=== PATIENT | male | born 1960 | race African-American/Black ===

== ENCOUNTER 2019-12-30 13:35 | Inpatient (IN) | payer MEDICAID, OTHER ==
[~2019-12-30] VITALS: Ht 193 cm; Wt 81.6 kg
[2019-12-30] MEDS ORDERED: WARF2TAB57 PO (13:43)
[2019-12-30] MEDS ORDERED: SODIUM CHLORIDE 0.9% 1,000 ML IV ONE (13:49)
[2019-12-30] MEDS ORDERED: MAGNESIUM 2 G PREMIX 50 ML IV STA (14:07)
[2019-12-30] MEDS ORDERED: ALBUTEROL (0.083%) 2.5MG/3ML NEB HHN STA (14:07)
[2019-12-30] MEDS ORDERED: IPRATROPIUM BROMIDE (0.02%) 0.5MG/2.5ML NEB HHN STA (14:07)
[2019-12-30] MEDS ORDERED: METHYLPREDNISOLONE SOD SUCC 125 MG/2 ML VIAL IV STA (14:07)
[2019-12-30 14:53] LABS: BASOPHILS % 0.8 % (0.0-2.0); EOSINOPHILS % 0.4 % (0.0-5.0); HEMOGLOBIN. 15.3 g/dL (14.0-18.0); LYMPHOCYTES % 11.9 % (20.0-50.0); MEAN CORPUSCULAR HEMOGLOBIN 31.5 pg (28.0-32.0); MEAN CORPUSCULAR VOLUME 94.3 fL (80.0-94.0); MEAN PLATELET VOLUME 8.5 fl (7.4-10.4); MONOCYTES % 11.1 % (2.0-8.0); NEUTROPHILS % 75.8 % (40.0-76.0); PLATELET 166 x1000/uL (130-400); RED BLOOD CELL COUNT 4.88 mill/uL (4.7-6.1); RED CELL DISTRIBUTION WIDTH 15.5 % (11.6-14.6)
[2019-12-30 15:03] LABS: CHLORIDE 103 mEq/L (98-107)
[2019-12-30 15:04] LABS: INR 1.3; PARTIAL THROMBOPLASTIN TIME 26.4 sec (23.4-31.0); PROTHROMBIN TIME 13.1 sec (9.6-11.0)
[2019-12-30 15:07] LABS: ETHANOL BLOOD 40 mg/dL
[2019-12-30] MEDS ORDERED: HEPARIN 25,000 UNITS PREMIX 500 ML IV STA (17:24)
[2019-12-30] MEDS ORDERED: HEPARIN 5000 UNITS/ML VIAL IV ONE (17:30)
[2019-12-30] MEDS ORDERED: HEPARIN 80 UNITS/KG BOLUS IV NR (17:33)
[2019-12-30] MEDS ORDERED: HEPARIN BOLUS PRN aPTT <36 IV (17:45)
[2019-12-30 18:27] LABS: CHLORIDE 105 mEq/L (98-107)
[2019-12-30] MEDS ORDERED: DIPHENHYDRAMINE 50MG/ML VIAL IV PRN (18:30)
[2019-12-30] MEDS ORDERED: ONDANSETRON HCL 4MG/2ML INJ IV PRN (18:30)
[2019-12-30] MEDS ORDERED: IPRATROPIUM/ALBUTEROL 0.5-3(2.5)MG/3ML NEB HHN PRN (18:30)
[2019-12-30] MEDS ORDERED: CLONIDINE 0.1MG TABLET PO PRN (18:30)
[2019-12-30] MEDS ORDERED: MORPHINE SULFATE 2 MG/ML CPJ (NOT FOR IM USE) IV PRN (18:30)
[2019-12-30] MEDS ORDERED: ACETAMINOPHEN 325MG TABLET PO PRN (18:30)
[2019-12-30] MEDS ORDERED: IOHEXOL-350 100 ML BOTTLE ONE (23:18)
[2019-12-30 23:39] LABS: CLARITY URINE CLEAR (CLEAR); COLOR URINE YELLOW (YELLOW); KETONES URINE TRACE (NEGATIVE); LEUKOCYTE ESTERASE URINE NEGATIVE (NEGATIVE); NITRITE URINE NEGATIVE (NEGATIVE); OCCULT BLOOD URINE NEGATIVE (NEGATIVE); PROTEIN URINE 2+ (NEGATIVE); SPECIFIC GRAVITY URINE 1.049 (1.005-1.030)
[2019-12-31] VITALS (22 sets, daily range): BP systolic 89–126; BP diastolic 53–78
[2019-12-31 00:08] LABS: *AMPHETAMINES SCREEN URINE NEGATIVE (NEGATIVE); *BARBITURATES SCREEN URINE NEGATIVE (NEGATIVE); *BENZODIAZEPINES SCREEN URINE NEGATIVE (NEGATIVE); *COCAINE SCREEN URINE PRESUMTIVE POSITIVE (NEGATIVE)
[2019-12-31 00:09] LABS: METHADONE URINE SCREEN NEGATIVE (NEGATIVE); OPIATES URINE SCREEN NEGATIVE (NEGATIVE); PHENCYCLIDINE URINE SCREEN NEGATIVE (NEGATIVE)
[2019-12-31 00:10] LABS: CANNABINOID URINE SCREEN PRESUMTIVE POSITIVE (NEGATIVE)
[2019-12-31 06:02] LABS: HEMATOCRIT. 42.8 % (42.0-52.0); HEMOGLOBIN. 14.3 g/dL (14.0-18.0); MEAN CORPUSCULAR HEMOGLOBIN 31.3 pg (28.0-32.0); MEAN CORPUSCULAR VOLUME 93.9 fL (80.0-94.0); MEAN PLATELET VOLUME 8.5 fl (7.4-10.4); PLATELET 151 x1000/uL (130-400); RED BLOOD CELL COUNT 4.56 mill/uL (4.7-6.1); RED CELL DISTRIBUTION WIDTH 15.1 % (11.6-14.6)
[2019-12-31 06:09] LABS: LDL CHOLESTEROL 81 mg/dL (5-100)
[2019-12-31 06:10] LABS: HDL CHOLESTEROL 38 mg/dL (40-59)
[2019-12-31 08:29] LABS: BG BASE EXCESS -3.4 mmol/L (-2.0-2.0); BG CARBOXYHEMOGLOBIN 1.2 % (0.5-1.5); BG DEOXYHEMOGLOBIN 15.2 % (0.0-5.0); BG FRACTION INSPIRED OXYGEN 44; BG METHEMOGLOBIN 0.1 % (0.0-1.5); BG OXYGEN SATURATION 84.6 % (92.0-98.5); BG OXYHEMOGLOBIN 83.5 % (94.0-97.0); BG PCO2 41.1 mmHg (35.0-45.0); BG PH 7.347 (7.350-7.450); BG PO2 52.3 mmHg (75.0-100.0); BG SAMPLE SITE RIGHT RADIAL; BG TOTAL HEMOGLOBIN 15.3 g/dL (12.0-18.0); BG VENT MODE NASAL CANNULA
[2019-12-31] MEDS ORDERED: HEPARIN 25,000 UNITS PREMIX 500 ML IV PRN (08:45)
[2019-12-31] MEDS ORDERED: MULTIVITAMINS,THER W-MINERALS TABLET PO SCH (09:45)
[2019-12-31] MEDS ORDERED: FOLIC ACID 1MG TABLET PO SCH (09:45)
[2019-12-31] MEDS ORDERED: FUROSEMIDE 40MG/4ML VIAL IVP SCH (10:30)
[2019-12-31] MEDS: THIAMINE HCL 100MG TABLET PO SCH (10:40)
[2019-12-31] MEDS: HEPARIN 25,000 UNITS PREMIX 500 ML IV SCH (10:43)
[2019-12-31 11:46] LABS: PLATELET ESTIMATE NORMAL
[2019-12-31 12:25] LABS: CHLORIDE 104 mEq/L (98-107)
[2019-12-31 13:45] LABS: T4 FREE 0.98 ng/dL (0.76-1.46)
[2019-12-31] MEDS: CHLORDIAZEPOXIDE 25MG CAPSULE PO SCH ×2 (14:02→17:09)
[2019-12-31] MEDS: FOLIC ACID 1 MG, THIAMINE HCL 100 MG, MVI, ADULT NO.1 10 ML in SODIUM CHLORIDE 0.9% 1,0... IV SCH ×4 (14:02)
[2019-12-31] MEDS: HEPARIN BOLUS PRN aPTT 37-44 IV (18:14)
[2019-12-31] MEDS: FAMOTIDINE 20MG TABLET PO SCH (20:00)
[2020-01-01] VITALS (24 sets, daily range): BP systolic 95–129; BP diastolic 56–88
[2020-01-01] MEDS: HEPARIN 25,000 UNITS PREMIX 500 ML IV SCH ×3 (05:24→21:15)
[2020-01-01 05:52] LABS: BASOPHILS % 0.8 % (0.0-2.0); EOSINOPHILS % 0.8 % (0.0-5.0); HEMATOCRIT. 40.5 % (42.0-52.0); HEMOGLOBIN. 13.3 g/dL (14.0-18.0); LYMPHOCYTES % 17.4 % (20.0-50.0); MEAN CORPUSCULAR HEMOGLOBIN 31.1 pg (28.0-32.0); MEAN CORPUSCULAR VOLUME 94.6 fL (80.0-94.0); MEAN PLATELET VOLUME 9.1 fl (7.4-10.4); MONOCYTES % 12.3 % (2.0-8.0); NEUTROPHILS % 68.7 % (40.0-76.0); PLATELET 147 x1000/uL (130-400); RED BLOOD CELL COUNT 4.29 mill/uL (4.7-6.1); RED CELL DISTRIBUTION WIDTH 15.1 % (11.6-14.6)
[2020-01-01 06:07] LABS: CHLORIDE 108 mEq/L (98-107)
[2020-01-01 06:12] LABS: PHOSPHORUS 2.6 mg/dL (2.5-4.9)
[2020-01-01] MEDS: FAMOTIDINE 20MG TABLET PO SCH ×2 (08:43→21:47)
[2020-01-01] MEDS: CHLORDIAZEPOXIDE 25MG CAPSULE PO SCH ×3 (08:43→18:25)
[2020-01-01] MEDS: THIAMINE HCL 100MG TABLET PO SCH (08:43)
[2020-01-01] MEDS: FOLIC ACID 1 MG, THIAMINE HCL 100 MG, MVI, ADULT NO.1 10 ML in SODIUM CHLORIDE 0.9% 1,0... IV SCH ×4 (13:38)
[2020-01-01] MEDS: HEPARIN BOLUS PRN aPTT 37-44 IV (18:26)
[2020-01-01] MEDS: FUROSEMIDE 40MG/4ML VIAL IVP SCH (18:46)
[2020-01-02] VITALS (26 sets, daily range): BP systolic 82–124; BP diastolic 48–91
[2020-01-02 05:45] LABS: BASOPHILS % 0.9 % (0.0-2.0); HEMATOCRIT. 43.1 % (42.0-52.0); HEMOGLOBIN. 14.2 g/dL (14.0-18.0); LYMPHOCYTES % 17.8 % (20.0-50.0); MEAN CORPUSCULAR HEMOGLOBIN 30.9 pg (28.0-32.0); MEAN CORPUSCULAR VOLUME 93.8 fL (80.0-94.0); MEAN PLATELET VOLUME 9.7 fl (7.4-10.4); MONOCYTES % 14.4 % (2.0-8.0); NEUTROPHILS % 64.9 % (40.0-76.0); PLATELET 164 x1000/uL (130-400); RED BLOOD CELL COUNT 4.59 mill/uL (4.7-6.1); RED CELL DISTRIBUTION WIDTH 15.6 % (11.6-14.6)
[2020-01-02 06:01] LABS: CHLORIDE 105 mEq/L (98-107)
[2020-01-02 06:10] LABS: PHOSPHORUS 2.9 mg/dL (2.5-4.9)
[2020-01-02] MEDS: THIAMINE HCL 100MG TABLET PO SCH (10:10)
[2020-01-02] MEDS: FAMOTIDINE 20MG TABLET PO SCH ×2 (10:10→21:20)
[2020-01-02] MEDS: CHLORDIAZEPOXIDE 25MG CAPSULE PO SCH ×3 (10:10→17:00)
[2020-01-02] MEDS: FUROSEMIDE 40MG/4ML VIAL IVP SCH (10:10)
[2020-01-02] MEDS: HEPARIN 25,000 UNITS PREMIX 500 ML IV SCH ×2 (11:25→16:09)
[2020-01-02] MEDS: FOLIC ACID 1 MG, THIAMINE HCL 100 MG, MVI, ADULT NO.1 10 ML in SODIUM CHLORIDE 0.9% 1,0... IV SCH ×4 (13:00)
[2020-01-02] MEDS: HEPARIN BOLUS PRN aPTT 37-44 IV (16:09)
== END 2020-01-02 22:30 | disposition short-term general hospital (02) | DRG 134 ==
LOC: ER 13:35 → EDBEDREQ 14:27 → EDBEDREQSVC 16:39 → EDBEDREQ 16:39 → MICUSO 17:23 → EDBEDREQSVC 17:26 → EDBEDREQ 17:26 → CVICU 12-31 07:18
PROVIDERS: ADMIT Internal Medicine; ATTEND Internal Medicine
DX: I26.99 Other pulmonary embolism without acute cor pulmonale (principal); J96.21 Acute and chronic respiratory failure with hypoxia; N17.0 Acute kidney failure with tubular necrosis; D68.59 Other primary thrombophilia; J44.1 Chronic obstructive pulmonary disease with (acute) exacerbation; E87.1 Hypo-osmolality and hyponatremia; I27.81 Cor pulmonale (chronic); N18.9 Chronic kidney disease, unspecified; I13.0 Hypertensive heart and chronic kidney disease with heart failure and stage 1 through stage 4 chronic kidney disease, or unspecified chronic kidney disease; I27.29 Other secondary pulmonary hypertension; E78.5 Hyperlipidemia, unspecified; F12.10 Cannabis abuse, uncomplicated; F14.10 Cocaine abuse, uncomplicated; F17.210 Nicotine dependence, cigarettes, uncomplicated; I50.82 Biventricular heart failure; I82.502 Chronic embolism and thrombosis of unspecified deep veins of left lower extremity; K21.9 Gastro-esophageal reflux disease without esophagitis; K70.9 Alcoholic liver disease, unspecified; Z60.2 Problems related to living alone; I50.42 Chronic combined systolic (congestive) and diastolic (congestive) heart failure; J44.9 Chronic obstructive pulmonary disease, unspecified; Z59.0 Homelessness; Z79.01 Long term (current) use of anticoagulants; Z82.49 Family history of ischemic heart disease and other diseases of the circulatory system; Z86.73 Personal history of transient ischemic attack (TIA), and cerebral infarction without residual deficits; Z91.14 Patient's other noncompliance with medication regimen; Z91.19 Patient's noncompliance with other medical treatment and regimen; Z91.81 History of falling; Z99.81 Dependence on supplemental oxygen; Z71.6 Tobacco abuse counseling; Z71.51 Drug abuse counseling and surveillance of drug abuser; Z03.818 Encounter for observation for suspected exposure to other biological agents ruled out
CPT/HCPCS: 36415; 36600; 71045; 71275; 76770; 80048; 80053; 80061; 80305; 80320; 81003; 82375; 82550; 82805; 83735; 83880; 84100; 84439; 84443; 84484; 85025; 85384; 87635; 93005; 93306; 93970; 94644; 96365; 99291; J1644; J1940; J2930; J3411; J3475; J3490; J7030; Q9967; G0480